=== PATIENT | male | born 1970 | race Caucasian/White ===

== ENCOUNTER 2023-01-17 15:56 | Emergency (ER) | payer OTHER ==
[2023-01-17 18:30] LABS: BASOPHILS ABSOLUTE AUTO 0.03 K/uL (0.00-0.10); BASOPHILS PERCENT AUTO 0.2 % (0.1-1.3); EOSINOPHILS PERCENT AUTO 0.1 % (0.0-5.4); HEMATOCRIT 44.8 % (38.4-49.7); HEMOGLOBIN 15.5 g/dL (12.9-16.9); IMMATURE GRAN ABSOLUTE AUTO 0.05 K/uL (0.00-0.23); IMMATURE GRAN PERCENT AUTO 0.4 % (0.0-0.7); LYMPHOCYTES ABSOLUTE AUTO 2.03 K/uL (0.8-3.3); LYMPHOCYTES PERCENT AUTO 15.5 % (11.4-47.7); MEAN CORPUSCULAR HEMOGLOBIN 30.3 pg (31.6-35.5); MEAN CORPUSCULAR HGB CONC 34.6 g/dL (31.6-35.5); MEAN CORPUSCULAR VOLUME 87.7 fL (81.4-99.0); MONOCYTES ABSOLUTE AUTO 1.71 K/uL (0.20-0.90); MONOCYTES PERCENT AUTO 13.1 % (3.3-12.6); NEUTROPHILS ABSOLUTE AUTO 9.27 K/uL (1.0-7.6); NEUTROPHILS PERCENT AUTO 70.7 % (40.0-78.1); PLATELET COUNT,PLT 221 K/uL (130-375); RED BLOOD CELL COUNT 5.11 M/uL (4.14-5.76); WHITE BLOOD CELL COUNT,WBC 13.1 K/uL (3.2-11.0)
[2023-01-17 18:31] LABS: EOSINOPHILS ABSOLUTE AUTO 0.01 K/uL (0.00-0.40)
[2023-01-17 18:48] LABS: ANION GAP 12.6 mmol/L (5.0-14.0); C-REACTIVE PROTEIN 6.73 mg/dL (0.0-0.3); CALCIUM 8.8 mg/dL (8.5-10.1); CREATININE 0.9 mg/dL (0.8-1.3); EST CRCL DRUG DOSING (CG) 98.19 mL/min; POTASSIUM,K 4.6 mmol/L (3.6-5.2)
[2023-01-17] MEDS ORDERED: Sodium Chloride 0.9% 1,000 ML IV ONE (19:22)
[2023-01-17] MEDS ORDERED: hydrALAZINE 20 MG/ML SDV IVPUSH ONE (20:01)
== END 2023-01-17 20:55 | disposition home or self-care (01) ==
LOC: JP.ED 15:56
DX: J18.9 Pneumonia, unspecified organism (principal)
CPT/HCPCS: 36415; 71045; 80048; 83605; 84145; 85025; 86140; 87635; 87651; 96361; 96374; 99283; J0360; J7030; U0002